=== PATIENT | male | born 1980 | race African-American/Black ===

== ENCOUNTER 2017-09-23 13:26 | Emergency (ER) | payer SELFPAY ==
[~2017-09-23] VITALS: Ht 182.9 cm; Wt 113.6 kg
[~2017-09-23 13:26] MED LIST: CYCL5TAB PO; IBUP-238 PO; Z.0.NO CURRENT MEDS
[2017-09-23 14:07] VITALS: BP 166/88; PULSE 87; RESP 18; TEMP 98.8; O2SAT 97
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
[2017-09-23] MEDS ORDERED: SILVER SULFADIAZINE 1% CR 50 GM JAR TOPICAL ONE (15:15)
== END 2017-09-23 15:35 | disposition home or self-care (01) ==
LOC: NEPK 13:26
DX: T23.272A Burn of second degree of left wrist, initial encounter (principal); F17.200 Nicotine dependence, unspecified, uncomplicated; X10.2XXA Contact with fats and cooking oils, initial encounter
CPT/HCPCS: 99283